=== PATIENT | male | born 1965 | race African-American/Black ===

== ENCOUNTER 2016-11-30 12:09 | Emergency (ER) | payer OTHER ==
[~2016-11-30] VITALS: Ht 180.3 cm; Wt 112.1 kg
[~2016-11-30 12:09] MED LIST: CLONIDINE HCL0.1 MG PO; TORADOL10 MG PO; TRAZODONE HCL50 MG PO
[2016-11-30 12:12] VITALS: BP 143/101
== END 2016-11-30 13:04 | disposition left against medical advice (07) ==
LOC: EME 12:09
DX: M54.5 Low back pain (principal); M25.561 Pain in right knee; M25.562 Pain in left knee; Z53.21 Procedure and treatment not carried out due to patient leaving prior to being seen by health care provider